=== PATIENT | male | born 1955 | race Caucasian/White ===

== ENCOUNTER 2021-01-13 12:25 | Inpatient (IN) | payer MEDICARE ==
[~2021-01-13 12:25] MED LIST: Magnevist 469MG/ML 20 ML VIAL ONE
[2021-01-13 12:58] LABS: Hemoglobin 11.7 g/dL (14.0-18.0); Mean Corpuscular HGB CONC 34.5 g/dL (32.0-36.0); Mean Corpuscular Hemoglobin 30.2 pg (27.0-31.0); Mean Corpuscular Volume 87.5 fL (78.0-98.0); Mean Platelet Volume 9.6 fL (7.4-10.4); Platelet Count 116 thou/uL (130-400); RBC Distribution Width 11.9 % (11.5-14.5); White Blood Cell (WBC) Count 15.2 thou/uL (4.8-10.8)
[2021-01-13 13:03] LABS: PTT 37.1 sec (22.9-36.1); Prothrombin Time 14.2 sec (12.0-14.7)
[2021-01-13 13:04] LABS: INR-International Normal Ratio 1.1
[2021-01-13 13:23] LABS: ALT (SGPT) 17 U/L (8-55); AST (SGOT) 22 U/L (5-34); Alkaline Phosphatase 64 U/L (40-110); Anion Gap 17 mmol/L (10-20); BUN (Urea Nitrogen) 46 mg/dL (8.4-25.7); Bilirubin, Total 0.8 mg/dL (0.2-1.2); Calc. Creatinine Clearance 0 mL/min (70-130); Calcium 8.1 mg/dL (7.8-10.44); Carbon Dioxide 18 mmol/L (23-31); Chloride 100 mmol/L (98-107); Globulin 2.7 g/dL (2.4-3.5); Glucose 106 mg/dL (80-115); Potassium 3.9 mmol/L (3.5-5.1); Protein, Total 5.7 g/dL (5.8-8.1); Sodium 131 mmol/L (136-145)
[2021-01-13 13:27] LABS: Band 8 % (5-11); Lymphocytes 3 % (21-51); MDiff Complete? YES; Monocytes 3 % (0-10); Neutrophil 86 % (42-75); Platelet Morphology Comment Appears Decreased; Polychromasia SLIGHT = 2-3 cells (100X) (0-2/hpf)
[2021-01-13 13:54] LABS: CKMB 4.4 ng/mL (0-6.6)
[2021-01-13] MEDS ORDERED: cefTRIAXone\\ROCEPHIN 1 GM in Sodium Chloride 0.9% 100 ML IVPB SCH (15:00)
[2021-01-13] MEDS ORDERED: Heparin 1,000 UNITS/ML VIAL ONE (15:31)
[2021-01-13 17:23] LABS: Critical Call Chem Troponin I RESULT DECREASING; Troponin I 1.259 ng/mL (< 0.028)
[2021-01-13] MEDS ORDERED: Sodium Bicarbonate 75 MEQ in Sodium Chloride 0.45% 1,000 ML IV SCH (17:30)
[2021-01-13] MEDS: Cefepime 1 GM in Sodium Chloride 0.9% 100 ML IVPB SCH (17:49)
[2021-01-13 18:22] LABS: Bilirubin Negative (Negative); Blood, Urine 2+ (Negative); Clarity Clear (Clear); Glucose, Urine (Dipstick) Normal (Negative); Ketone, Urine Negative (Negative); Leukocyte Negative Leu/uL (Negative); Nitrite Negative (Negative); Protein, Urine (Dipstick) 100 mg/dL (Neg-Trace); RBC/HPF 21-50 HPF (0-3); Specific Gravity, Urine 1.022 (1.002-1.036); Squamous Epithelial None Seen HPF (0-3); Urobilinogen Normal mg/dL (Less than 2); pH, Urine 5.5 (5.0-9.0)
[2021-01-13 18:24] LABS: Bacteria/HPF Rare-Few HPF (None Seen)
[2021-01-13 18:40] LABS: Creatinine, Urine 95.84 mg/dL (63-166)
[2021-01-13 20:08] LABS: Critical Call Chem Troponin I RESULT DECREASING; Troponin I 1.164 ng/mL (< 0.028)
[2021-01-13] MEDS: Labetalol HCl 100 MG/20 ML VIAL SLOW IVP PRN (20:41)
[2021-01-13 21:55] LABS: Anion Gap 17 mmol/L (10-20); BUN (Urea Nitrogen) 46 mg/dL (8.4-25.7); Calc. Creatinine Clearance 50 mL/min (70-130); Calcium 8.2 mg/dL (7.8-10.44); Carbon Dioxide 18 mmol/L (23-31); Chloride 104 mmol/L (98-107); Glucose 90 mg/dL (80-115); Potassium 4.9 mmol/L (3.5-5.1); Sodium 134 mmol/L (136-145)
[2021-01-14] MEDS: niCARdipine 25 MG in Sodium Chloride 0.9% 250 ML 240 ML IVPB PRN ×3 (01:41→19:42)
[2021-01-14 04:49] LABS: Hemoglobin 11.8 g/dL (14.0-18.0); Mean Corpuscular HGB CONC 32.8 g/dL (32.0-36.0); Mean Corpuscular Hemoglobin 28.8 pg (27.0-31.0); Mean Corpuscular Volume 87.6 fL (78.0-98.0); Platelet Count 133 thou/uL (130-400); RBC Distribution Width 11.9 % (11.5-14.5); Red Blood Cell (RBC) Count 4.12 mill/uL (4.70-6.10); White Blood Cell (WBC) Count 14.3 thou/uL (4.8-10.8)
[2021-01-14 04:50] LABS: Eosinophils 1 % (0-10); Lymphocytes 7 % (21-51); MDiff Complete? YES; Monocytes 7 % (0-10); Neutrophil 85 % (42-75); Platelet Morphology Comment Appears Adequate
[2021-01-14 04:52] LABS: ALT (SGPT) 15 U/L (8-55); AST (SGOT) 20 U/L (5-34); Albumin 3.1 g/dL (3.4-4.8); Alkaline Phosphatase 72 U/L (40-110); Anion Gap 16 mmol/L (10-20); BUN (Urea Nitrogen) 44 mg/dL (8.4-25.7); Bilirubin, Total 0.6 mg/dL (0.2-1.2); Calc. Creatinine Clearance 56 mL/min (70-130); Calcium 8.5 mg/dL (7.8-10.44); Carbon Dioxide 20 mmol/L (23-31); Cardiac Risk 4.1 (Less than 4.5); Chloride 101 mmol/L (98-107); Cholesterol 128 mg/dl (< 200 Desired); Globulin 2.8 g/dL (2.4-3.5); Glucose 93 mg/dL (80-115); HDL Cholesterol 31 mg/dL (>60 Neg Risk); LDL Cholesterol, Calculated 72 mg/dL; Protein, Total 5.9 g/dL (5.8-8.1); Sodium 133 mmol/L (136-145); Triglycerides 126 mg/dL (Less than 150)
[2021-01-14] MEDS ORDERED: VANCOMYCIN 2 GRAM/400 ML BAG 2 GM in Premix Bag 1 BAG IVPB SCH (07:00)
[2021-01-14] MEDS: Cefepime 1 GM in Sodium Chloride 0.9% 100 ML IVPB SCH ×2 (07:38→17:33)
[2021-01-14] MEDS: Pantoprazole 40 MG VIAL IVP SCH (08:38)
[2021-01-14] MEDS: Dextrose 5%-Lactated Ringers 1,000 ML IV SCH (11:59)
[2021-01-14] MEDS ORDERED: Vancomycin 1 GM in Premix Bag 1 BAG IVPB SCH (17:00)
[2021-01-14] MEDS ORDERED: Acetaminophen 500 MG TAB PO PRN (19:42)
[2021-01-14 21:00] LABS: Vancomycin, Random 17.7 ug/mL (See Comment)
[2021-01-15] MEDS: Acetaminophen 650 MG/20.3 ML UDCUP PO PRN (00:15)
[2021-01-15] MEDS: Dextrose 5%-Lactated Ringers 1,000 ML IV SCH ×2 (01:33→13:10)
[2021-01-15] MEDS: Cefepime 1 GM in Sodium Chloride 0.9% 100 ML IVPB SCH (05:05)
[2021-01-15] MEDS: Labetalol HCl 100 MG/20 ML VIAL SLOW IVP PRN ×3 (05:52→20:35)
[2021-01-15 07:05] LABS: Hemoglobin 11.9 g/dL (14.0-18.0); Mean Corpuscular HGB CONC 32.4 g/dL (32.0-36.0); Mean Corpuscular Hemoglobin 28.6 pg (27.0-31.0); Mean Corpuscular Volume 88.4 fL (78.0-98.0); Mean Platelet Volume 9.3 fL (7.4-10.4); Platelet Count 147 thou/uL (130-400); Red Blood Cell (RBC) Count 4.18 mill/uL (4.70-6.10); White Blood Cell (WBC) Count 12.3 thou/uL (4.8-10.8)
[2021-01-15 07:30] LABS: Albumin 2.9 g/dL (3.4-4.8); Anion Gap 13 mmol/L (10-20); BUN (Urea Nitrogen) 39 mg/dL (8.4-25.7); BUN/Creatinine Ratio 28.26; Calc. Creatinine Clearance 71 mL/min (70-130); Calcium 8.3 mg/dL (7.8-10.44); Carbon Dioxide 23 mmol/L (23-31); Chloride 107 mmol/L (98-107); Glucose 114 mg/dL (80-115); Phosphorus 3.7 mg/dL (2.3-4.7); Potassium 4.1 mmol/L (3.5-5.1); Sodium 139 mmol/L (136-145)
[2021-01-15] MEDS ORDERED: Vancomycin 1 GM in Premix Bag 1 BAG IVPB SCH (08:00)
[2021-01-15] MEDS: Pantoprazole 40 MG VIAL IVP SCH (08:28)
[2021-01-15] MEDS ORDERED: PROPOFOL 40 ML ONE (10:23)
[2021-01-15] MEDS ORDERED: Midazolam HCl 2 mg/2 ml Vial ONE (10:34)
[2021-01-15] MEDS ORDERED: Fentanyl 100 MCG/2 ML VIAL ONE (10:34)
[2021-01-15] MEDS ORDERED: PROPOFOL 200 MG/20 ML VIAL ONE (11:24)
[2021-01-15 13:05] VITALS: BMI 33.5
[2021-01-15] MEDS: hydrALAZINE 20 MG/ML VIAL SLOW IVP PRN (22:58)
[2021-01-16] MEDS: Labetalol HCl 100 MG/20 ML VIAL SLOW IVP PRN (01:04)
[2021-01-16] MEDS: hydrALAZINE 20 MG/ML VIAL SLOW IVP PRN (03:10)
[2021-01-16] MEDS: Dextrose 5%-Lactated Ringers 1,000 ML IV SCH (04:05)
[2021-01-16 04:39] LABS: Hemoglobin 10.8 g/dL (14.0-18.0); Mean Corpuscular HGB CONC 33.9 g/dL (32.0-36.0); Mean Corpuscular Hemoglobin 30.1 pg (27.0-31.0); Mean Corpuscular Volume 88.7 fL (78.0-98.0); Mean Platelet Volume 9.5 fL (7.4-10.4); Platelet Count 159 thou/uL (130-400); RBC Distribution Width 12.1 % (11.5-14.5); White Blood Cell (WBC) Count 9.4 thou/uL (4.8-10.8)
[2021-01-16 04:58] LABS: Albumin 2.8 g/dL (3.4-4.8); Anion Gap 12 mmol/L (10-20); BUN (Urea Nitrogen) 32 mg/dL (8.4-25.7); BUN/Creatinine Ratio 28.83; Calc. Creatinine Clearance 88 mL/min (70-130); Calcium 8.3 mg/dL (7.8-10.44); Carbon Dioxide 23 mmol/L (23-31); Chloride 108 mmol/L (98-107); Glucose 116 mg/dL (80-115); Phosphorus 3.8 mg/dL (2.3-4.7); Potassium 4.1 mmol/L (3.5-5.1); Sodium 139 mmol/L (136-145)
[2021-01-16 07:30] LABS: Vancomycin, Trough 7.9 ug/mL
[2021-01-16] MEDS: Vancomycin 1.5 GRAM/300 ML BAG 1.5 GM in Premix Bag 1 BAG IVPB SCH (09:01)
[2021-01-16] MEDS: Pantoprazole 40 MG VIAL IVP SCH (09:02)
[2021-01-16] MEDS ORDERED: cloNIDine 0.1 MG TAB PO PRN (10:53)
[2021-01-16] MEDS ORDERED: Amlodipine 10 MG TAB PO SCH (11:00)
[2021-01-16] MEDS ORDERED: Metoprolol Tartrate 25 MG TAB PO SCH ×2 (11:15→21:00)
[2021-01-16] MEDS: Acetaminophen 650 MG/20.3 ML UDCUP PO PRN (18:03)
[2021-01-16] MEDS: cefTRIAXone\\ROCEPHIN 2 GM in Sodium Chloride 0.9% 100 ML IVPB SCH (20:17)
[2021-01-17 04:53] LABS: Hemoglobin 11.8 g/dL (14.0-18.0); Mean Corpuscular HGB CONC 32.9 g/dL (32.0-36.0); Mean Corpuscular Hemoglobin 29.4 pg (27.0-31.0); Mean Corpuscular Volume 89.5 fL (78.0-98.0); Platelet Count 201 thou/uL (130-400); RBC Distribution Width 12.1 % (11.5-14.5); Red Blood Cell (RBC) Count 4.02 mill/uL (4.70-6.10); White Blood Cell (WBC) Count 10.4 thou/uL (4.8-10.8)
[2021-01-17 05:14] LABS: Albumin 3.1 g/dL (3.4-4.8); Anion Gap 12 mmol/L (10-20); BUN (Urea Nitrogen) 34 mg/dL (8.4-25.7); BUN/Creatinine Ratio 31.48; Calc. Creatinine Clearance 94 mL/min (70-130); Calcium 8.8 mg/dL (7.8-10.44); Carbon Dioxide 23 mmol/L (23-31); Chloride 109 mmol/L (98-107); Glucose 95 mg/dL (80-115); Phosphorus 3.9 mg/dL (2.3-4.7); Potassium 4.1 mmol/L (3.5-5.1); Sodium 140 mmol/L (136-145)
[2021-01-17] MEDS ORDERED: Amlodipine 10 MG TAB PO SCH (09:00)
[2021-01-17] MEDS ORDERED: Lisinopril 20 MG TAB PO SCH (09:00)
[2021-01-17] MEDS: Metoprolol Tartrate 25 MG TAB PO SCH ×2 (09:32→20:30)
[2021-01-17] MEDS: Rosuvastatin 20 MG TAB PO SCH (09:32)
[2021-01-17] MEDS: Pantoprazole 40 MG VIAL IVP SCH (09:32)
[2021-01-17] MEDS: Vancomycin 1.5 GRAM/300 ML BAG 1.5 GM in Premix Bag 1 BAG IVPB SCH (09:32)
[2021-01-17] MEDS ORDERED: NIFEdipine XL 30 MG TAB PO SCH (12:45)
[2021-01-17] MEDS: cefTRIAXone\\ROCEPHIN 2 GM in Sodium Chloride 0.9% 100 ML IVPB SCH (20:30)
[2021-01-18 05:30] LABS: Hemoglobin 11.3 g/dL (14.0-18.0); Mean Corpuscular HGB CONC 32.5 g/dL (32.0-36.0); Mean Corpuscular Hemoglobin 28.8 pg (27.0-31.0); Mean Corpuscular Volume 88.4 fL (78.0-98.0); Mean Platelet Volume 8.4 fL (7.4-10.4); Platelet Count 235 thou/uL (130-400); Red Blood Cell (RBC) Count 3.94 mill/uL (4.70-6.10); White Blood Cell (WBC) Count 10.8 thou/uL (4.8-10.8)
[2021-01-18 05:50] LABS: Albumin 2.9 g/dL (3.4-4.8); Anion Gap 12 mmol/L (10-20); BUN (Urea Nitrogen) 34 mg/dL (8.4-25.7); BUN/Creatinine Ratio 30.63; Calc. Creatinine Clearance 90 mL/min (70-130); Calcium 8.6 mg/dL (7.8-10.44); Carbon Dioxide 24 mmol/L (23-31); Chloride 107 mmol/L (98-107); Glucose 95 mg/dL (80-115); Phosphorus 3.7 mg/dL (2.3-4.7); Potassium 3.8 mmol/L (3.5-5.1); Sodium 139 mmol/L (136-145)
[2021-01-18 07:58] LABS: Vancomycin, Trough 10.6 ug/mL
[2021-01-18 07:58] LABS: Bacteria/HPF None Seen HPF (None Seen); Bilirubin Negative (Negative); Blood, Urine 3+ (Negative); Clarity Turbid (Clear); Glucose, Urine (Dipstick) Normal (Negative); Ketone, Urine Negative (Negative); Leukocyte Negative Leu/uL (Negative); Nitrite Negative (Negative); Protein, Urine (Dipstick) 200 mg/dL (Neg-Trace); RBC/HPF Greater than 50 HPF (0-3); Squamous Epithelial 0-3 HPF (0-3); Urobilinogen Normal mg/dL (Less than 2)
[2021-01-18] MEDS ORDERED: Sodium Chloride 0.9% 1,000 ML IV SCH (08:00)
[2021-01-18] MEDS ORDERED: VANCOMYCIN 2 GRAM/400 ML BAG 2 GM in Premix Bag 1 BAG IVPB SCH (09:00)
[2021-01-18] MEDS ORDERED: NIFEdipine XL 60 MG TAB PO SCH (09:00)
[2021-01-18] MEDS ORDERED: NIFEdipine XL 90 MG TAB PO SCH ×2 (09:00)
[2021-01-18] MEDS: Vancomycin 1.5 GRAM/300 ML BAG 1.5 GM in Premix Bag 1 BAG IVPB SCH (09:07)
[2021-01-18] MEDS: Metoprolol Tartrate 25 MG TAB PO SCH (09:33)
[2021-01-18] MEDS: Rosuvastatin 20 MG TAB PO SCH (09:33)
[2021-01-18] MEDS: Pantoprazole 40 MG VIAL IVP SCH (09:34)
[2021-01-18] MEDS: Sodium Chloride 0.9% 1,000 ML IV SCH ×2 (11:30→16:16)
[2021-01-18] MEDS ORDERED: Iopamidol 370 76% 100 ML VIAL ONE (14:33)
[2021-01-18 16:02] VITALS: BP 170/80; TEMP 98
== END 2021-01-18 20:30 | DRG 64 ==
LOC: ERS 12:25 → CCU 13:55 → 2SE 01-15 18:37
PROVIDERS: ADMIT Internal Medicine; ATTEND Internal Medicine
PROC: B24BZZ4 Ultrasonography of Heart with Aorta, Transesophageal (ICD-10-PCS; principal; 2021-01-16)
PROC: 02HV33Z Insertion of Infusion Device into Superior Vena Cava, Percutaneous Approach (ICD-10-PCS; 2021-01-18)
DX: I63.40 Cerebral infarction due to embolism of unspecified cerebral artery (principal); I21.4 Non-ST elevation (NSTEMI) myocardial infarction; G93.6 Cerebral edema; I21.A1 Myocardial infarction type 2; I61.2 Nontraumatic intracerebral hemorrhage in hemisphere, unspecified; I13.0 Hypertensive heart and chronic kidney disease with heart failure and stage 1 through stage 4 chronic kidney disease, or unspecified chronic kidney disease; I62.9 Nontraumatic intracranial hemorrhage, unspecified; N17.9 Acute kidney failure, unspecified; E87.2 Acidosis; Q61.3 Polycystic kidney, unspecified; G81.91 Hemiplegia, unspecified affecting right dominant side; E22.2 Syndrome of inappropriate secretion of antidiuretic hormone; I76 Septic arterial embolism; G93.40 Encephalopathy, unspecified; I38 Endocarditis, valve unspecified; I25.10 Atherosclerotic heart disease of native coronary artery without angina pectoris; R47.01 Aphasia; E78.5 Hyperlipidemia, unspecified; N40.1 Benign prostatic hyperplasia with lower urinary tract symptoms; R33.9 Retention of urine, unspecified; D72.829 Elevated white blood cell count, unspecified; N18.30 Chronic kidney disease, stage 3 unspecified; I25.5 Ischemic cardiomyopathy; I66.9 Occlusion and stenosis of unspecified cerebral artery; I16.0 Hypertensive urgency; K52.9 Noninfective gastroenteritis and colitis, unspecified; B95.8 Unspecified staphylococcus as the cause of diseases classified elsewhere; I08.3 Combined rheumatic disorders of mitral, aortic and tricuspid valves; Z95.2 Presence of prosthetic heart valve; I65.23 Occlusion and stenosis of bilateral carotid arteries; Z90.79 Acquired absence of other genital organ(s); Z95.1 Presence of aortocoronary bypass graft
CPT/HCPCS: 36415; 36416; 36569; 70450; 70552; 71045; 74178; 76770; 80053; 80061; 80069; 80202; 81001; 81015; 82553; 82570; 83930; 83935; 84145; 84156; 84300; 84484; 84540; 85025; 85027; 85610; 85730; 87040; 87077; 87086; 87149; 87633; 93005; 93306; 93312; 93880; 95712; 95819; 95957; A9579; C1751; C9113; J0360; J0692; J0696; J1644; J2250; J2704; J3010; J3370; J3490; J7050; Q9967

== ENCOUNTER 2022-08-22 08:07 | Day surgery (SDC) | payer MEDICARE ==
[2022-08-19 11:10] VITALS: BMI 26.9
[2022-08-22] MEDS ORDERED: PROPOFOL 200 MG/20 ML VIAL ONE (09:19)
[2022-08-22] MEDS ORDERED: Loperamide HCl 2 MG CAP PO SCH (09:30)
== END 2022-08-22 11:10 | disposition home or self-care (01) ==
LOC: SDC 08:07
PROVIDERS: ATTEND Internal Medicine
PROC: 0DBP8ZX Excision of Rectum, Via Natural or Artificial Opening Endoscopic, Diagnostic (ICD-10-PCS; principal; 2022-08-22)
PROC: 0DBN8ZX Excision of Sigmoid Colon, Via Natural or Artificial Opening Endoscopic, Diagnostic (ICD-10-PCS; 2022-08-22)
PROC: 3E0H8GC Introduction of Other Therapeutic Substance into Lower GI, Via Natural or Artificial Opening Endoscopic (ICD-10-PCS; 2022-08-22)
DX: D12.5 Benign neoplasm of sigmoid colon (principal); D12.8 Benign neoplasm of rectum; A04.71 Enterocolitis due to Clostridium difficile, recurrent; K57.30 Diverticulosis of large intestine without perforation or abscess without bleeding; K64.8 Other hemorrhoids; I10 Essential (primary) hypertension; Z86.73 Personal history of transient ischemic attack (TIA), and cerebral infarction without residual deficits; Z79.02 Long term (current) use of antithrombotics/antiplatelets; Z79.82 Long term (current) use of aspirin; Z79.899 Other long term (current) drug therapy; Z95.1 Presence of aortocoronary bypass graft; Z95.3 Presence of xenogenic heart valve
CPT/HCPCS: 45385; G0455; 88305; J2704